=== PATIENT | female | born 1990 | race African-American/Black ===

== ENCOUNTER 2017-04-22 00:10 | Emergency (ER) | payer OTHER ==
[~2017-04-22] VITALS: Ht 165.1 cm; Wt 103.0 kg
[~2017-04-22 00:10] MED LIST: BENA1TAB18 PO; COLE3.75 PO; METF500T4 PO
[2017-04-22] MEDS ORDERED: ASPIRIN 81MG TABLET PO STA (02:00)
[2017-04-22 02:39] LABS: D-DIMER < 0.19 mg/L FEU (<0.50); INR 1.1; PARTIAL THROMBOPLASTIN TIME 30.2 sec (24.0-34.0); PROTHROMBIN TIME 11.7 sec
[2017-04-22 02:42] LABS: CARBON DIOXIDE 29 mEq/L (21-32); CHLORIDE 105 mEq/L (98-107); TROPONIN I < 0.02 ng/mL (0.00-0.04)
[2017-04-22 02:44] LABS: BASOPHILS % 0.5 % (0.0-2.0); HEMATOCRIT. 36.6 % (36.0-48.0); HEMOGLOBIN. 12.3 g/dL (12.0-16.0); LYMPHOCYTES % 50.3 % (20.0-50.0); MEAN CORPUSCULAR HEMOGLOBIN 25.9 pg (28.0-32.0); MEAN CORPUSCULAR VOLUME 76.9 fL (81.0-99.0); MEAN PLATELET VOLUME 7.6 fl (7.4-10.4); MONOCYTES % 8.6 % (2.0-8.0); NEUTROPHILS % 40.6 % (40.0-76.0); PLATELET 276 x1000/uL (130-400); RED BLOOD CELL COUNT 4.76 mill/uL (4.2-5.4); RED CELL DISTRIBUTION WIDTH 13.6 % (11.6-14.6)
[2017-04-22 02:47] LABS: HCG SCREEN NEGATIVE
[2017-04-22 04:06] VITALS: BP 119/46
== END 2017-04-22 04:43 | disposition home or self-care (01) ==
LOC: ER 00:10
DX: R07.89 Other chest pain (principal); E11.9 Type 2 diabetes mellitus without complications; I10 Essential (primary) hypertension
CPT/HCPCS: 36415; 71010; 80053; 82962; 83690; 83880; 84443; 84484; 84703; 85025; 85379; 85610; 85730; 93005; 99285; Z7610